=== PATIENT | male | born 1975 | race Caucasian/White ===

== ENCOUNTER 2019-04-14 15:01 | Emergency (ER) | payer BC, OTHER ==
[2019-04-14 15:27] VITALS: BP 143/86
--- NOTE | 2019-04-14 16:31 | UC ---
Hand/Wrist HPI - HPI Summary HPI Summary: 43 yo male right index finger pain and swelling x 2 weeks after chewing a hangnail no fever he is right handed no hx MRSA - History Of Current Complaint Chief Complaint: UCSkin Stated Complaint: RIGHT INDEX FINGER PROBLEM Time Seen by Provider: 04/14/19 16:13 Hx Obtained From: Patient Onset/Duration: Gradual Onset Severity Initially: Mild Severity Currently: Moderate Pain Intensity: 0 - unless touched Pain Scale Used: 0-10 Numeric Character Of Pain: Sharp - if he bumps it Alleviating Factor(s): Rest Associated Signs And Symptoms: Positive: Swelling, Redness, Other - has drained pus Related History: Dominant Hand Right Hands: 1 - paronychia, no subungual pus - Allergies/Home Medications Allergies/Adverse Reactions: Allergies Allergy/AdvReac Type Severity Reaction Status Date / Time shellfish derived Allergy Numbness Verified 04/14/19 15:28 And Tingling Home Medications: Home Medications Pravastatin Sodium 40 mg PO DAILY 04/14/19 [History Confirmed 04/14/19] PMH/Surg Hx/FS Hx/Imm Hx Previously Healthy: Yes Endocrine History: Dyslipidemia - Surgical History Surgical History: None - Family History Known Family History: Positive: Hypertension - Social History Alcohol Use: Occasionally Substance Use Type: None Smoking Status (MU): Never Smoked Tobacco Review of Systems All Other Systems Reviewed And Are Negative: Yes Constitutional: Positive: Negative Skin: Positive: Other - see image Eyes: Positive: Negative ENT: Positive: Negative Respiratory: Positive: Negative Cardiovascular: Positive: Negative Gastrointestinal: Positive: Negative Genitourinary: Positive: Negative Motor: Positive: Negative Neurovascular: Positive: Negative Musculoskeletal: Positive: Negative Neurological: Positive: Negative Psychological: Positive: Negative Physical Exam Triage Information Reviewed: Yes Appearance: Well-Appearing, No Pain Distress, Well-Nourished Vital Signs: Initial Vital Signs Temp 98.2 F 04/14/19 15:22 Pulse 87 04/14/19 15:22 Resp 18 04/14/19 15:22 BP 143/86 04/14/19 15:22 Pulse Ox 98 04/14/19 15:22 Vital Signs Reviewed: Yes Eyes: Positive: Conjunctiva Clear ENT: Positive: Hearing grossly normal. Negative: Nasal congestion, Nasal drainage, Trismus, Muffled voice, Hoarse voice Neck: Positive: Supple Respiratory: Positive: Lungs clear, Normal breath sounds, No respiratory distress, No accessory muscle use Cardiovascular: Positive: RRR, No Murmur Neurological: Positive: Alert Psychological Exam: Normal Skin Exam: Other - see image Procedures - Incision and Drainage Right Upper Finger Site: RIGHT INDEX FINGER PARONYCHIA Instrument(s): Needle Packing: Other - No Hand/Wrist Course/Dx - Differential Dx/Diagnosis Provider Diagnosis: Paronychia of right index finger Discharge - Sign-Out/Discharge Documenting (check all that apply): Patient Departure All imaging exams completed and their final reports reviewed: No Studies - Discharge Plan Condition: Stable Disposition: HOME Prescriptions: Cephalexin CAP* [Keflex CAP*] 500 mg PO QID #28 cap Patient Education Materials: Paronychia (ED) Referrals: Mendoza May MD [Primary Care Provider] - If Needed Additional Instructions: frequent warm soapy soaks today to encourage drainage recheck in 3 days if not markedly improved a culture is pending tylenol or advil if needed for pain - Billing Disposition and Condition Condition: STABLE Disposition: Home
== END 2019-04-14 16:45 | disposition home or self-care (01) ==
LOC: UCCORT 15:01
DX: L03.011 Cellulitis of right finger (principal); B95.61 Methicillin susceptible Staphylococcus aureus infection as the cause of diseases classified elsewhere; E78.5 Hyperlipidemia, unspecified
CPT/HCPCS: 87070; 87205; 87640; 87641; 99202; G0463